=== PATIENT | male | born 1970 | race Caucasian/White ===

== ENCOUNTER 2023-09-20 08:19 | Day surgery (SDC) | payer BC ==
[2023-09-20 09:02] LABS: MPV 8.4 fL (7.6-11.3); Platelets 178 thou/uL (152-406)
[2023-09-20 09:21] VITALS: BMI 21.1
[2023-09-20 09:46] LABS: Protime INR 1.06
[2023-09-20] MEDS ORDERED: HYDROCODONE/APAP 10/325 TAB ONE (11:53)
--- NOTE | 2023-09-20 12:38 | RAD REPORT ---
EXAM DESCRIPTION: RAD - Myelography C Spine - 09/20/2023 11:00 am CLINICAL HISTORY: RADICULOPATHY Lumbar puncture for myelogram COMPARISON: Myelogram C Spine dated 09/20/2023 TECHNIQUE: The procedure, risks and alternatives to the procedure were discussed with the patient in detail. After answering all questions, both oral and written consent were obtained. Time-out procedu re was performed. The patient was placed in an oblique prone position on the fluoroscopic table. The skin of the lower back was prepped and draped in the usual sterile fashion. After anesthetizing the skin and deeper sof t tissues with 1% lidocaine, a 22 gauge needle was advanced into the thecal sac at the L3-4 level. 10 cc of Isovue-300 M was injected. At the conclusion of the procedure the needle was withdrawn and a sterile bandage placed over the pun cture site. The patient tolerated the procedure well and was then transferred to the CT scanner. Total fluoro time: 53 seconds Images obtained: 2 IMPRESSION: Successful fluoroscopic guided lumbar puncture for myelogram injection.
[2023-09-20 13:01] VITALS: O2SAT 100
--- NOTE | 2023-09-20 13:05 | RAD REPORT ---
EXAM DESCRIPTION: CT - Myelogram C Spine - 09/20/2023 11:27 am CLINICAL HISTORY: RADICULOPATHY COMPARISON: Myelography C Spine dated 09/20/2023 FINDINGS: Lumbar puncture for myelographic contrast injection is separately reported. There is adequate subarachnoid contrast seen in the cervical spine. Changes ACDF span C4-7. No evidence of hardware complication. Craniocervical junction appears unremarkable. C2-3: Unremarkable. C3-4: Small endplate osteophyte without significant canal narrowing. C4-5: Small posterior osteophyte/ disc complex with subtle attenuation of the anterior subarachnoid s pace. Mild left-sided facet hypertrophy slightly narrows the left exit foramen. C5-6: Small posterior osteophyte/disc complex is present attenuating the anterior subarachnoid space. Left-sided uncovertebral facet spurring moderately narrows the left exit foramen. C6-7: Small endplate osteophyte. Slight attenuation of the anterior subarachnoid space. Uncovertebral spurring, greater on the left mildly narrows the left exit foramen. C7-T1: Unremarkable. No gross cord abnormality. IMPRESSION: Mild lower cervical degenerative spondylosis is present as detailed. No severe canal or foraminal stenosis suspected at any level. Changes of ACDF span C4-7 without evidence of hardware complication.
[2023-09-20 13:09] VITALS: BP 152/75; TEMP 97.2
== END 2023-09-20 13:00 | disposition home or self-care (01) ==
LOC: DS 08:19
PROVIDERS: ATTEND Neurological Surgery
DX: M47.22 Other spondylosis with radiculopathy, cervical region (principal); M48.02 Spinal stenosis, cervical region; Z98.1 Arthrodesis status
CPT/HCPCS: 36415; 62302; 72126; 85049; 85610; 85730